=== PATIENT | male | born 1980 | race Caucasian/White ===

== ENCOUNTER 2017-01-08 05:47 | Emergency (ER) | payer OTHER ==
[2017-01-08 06:25] VITALS: BMI 37.9
[2017-01-08] MEDS ORDERED: SODIUM CHLORIDE 1,000 ML IV STA (06:30)
--- NOTE | 2017-01-08 06:37 | PDOC ---
History of Present Illness - General Chief Complaint: Pain Stated Complaint: RIGHT SIDE PAIN Time Seen by Provider: 01/08/17 06:17 History Source: Patient Exam Limitations: No Limitations - History of Present Illness Travel History: No Initial Comments: 01/08/17 06:31 36yo Male patient with no significant past medical history presents to ED c/o RLQ Abdominal Pain. Patient states symptoms began 1 weeks ago, on and off, comes and goes. Patient states yesterday symptoms more pronounced and he became concerned. He denies OTC medications use, fever, n/v/d, rash, CP, back pain dysuria, rectal bleeding, or any other complaints at this time. Associated testicular pain intermittently. PCP- None. Timing/Duration: reports: intermittent Quality: reports: moderate, sharpness Abdominal Pain Onset Location: reports: RLQ Pain Radiation: reports: groin Activities at Onset: reports: no specific activity Treatment Prior to Arrive: worse with: analgesics, antacids, cold pack, heat, laxative, enema, other Aggravating Factors: worse with: None, Defecation, Eating, Emotional upset, Exertion, [place], Movement, Voiding, Change in position Past History - Travel Traveled outside of the country in the last 30 days: No Close contact w/someone who was outside of country & ill: No - Past Medical History Allergies/Adverse Reactions: Allergies Allergy/AdvReac Type Severity Reaction Status Date / Time No Known Allergies Allergy Verified 01/08/17 06:14 Home Medications: Ambulatory Orders NK [No Known Home Medication] 01/08/17 - Suicide/Smoking/Psychosocial Hx Smoking History: Never smoked Have you smoked in the past 12 months: No Information on smoking cessation initiated: No Hx Alcohol Use: No Drug/Substance Use Hx: No Abd/GI Specific PMHX - Complaint Specific PMHX Colitis: No Diverticulitis: No Gall Bladder Disease: No GERD: No Hepatitis: No Irritable Bowel Synd (IBS): No Pancreatitis: No GI Ulcer Disease: No Review of Systems - Review of Systems Able to Perform ROS?: Yes Is the patient limited [place] proficient: No Constitutional: No: Chills, Fever Respiratory: No: Shortness of Breath, Stridor Cardiac (ROS): No: Chest Pain, Syncope, Chest Tightness ABD/GI: Yes: Nausea, Vomiting, Abdominal cramping (RLQ). No: Constipated, Diarrhea, Poor Appetite, Poor Fluid Intake : Yes: Testicular Pain. No: Burning, Dysuria, Flank Pain, Hematuria Musculoskeletal: No: Back Pain All Other Systems: Reviewed and Negative *Physical Exam - Vital Signs Last Vital Signs Temp Pulse Resp BP Pulse Ox 97.9 F 98 H 18 166/96 100 01/08/17 06:11 01/08/17 06:11 01/08/17 06:11 01/08/17 06:11 01/08/17 06:11 - Physical Exam General Appearance: Yes: Nourished, Appropriately Dressed, Obese. No: Apparent Distress, Mild Distress, Moderate Distress, Severe Distress Respiratory/Chest: positive: Lungs Clear, Normal Breath Sounds. negative: Chest Tender, Respiratory Distress, Accessory Muscle Use, Labored Respiration, Rapid RR, Paradoxal Breathing, Rhonchi, Stridor, Wheezing Cardiovascular: positive: Regular Rhythm, Regular Rate Gastrointestinal/Abdominal: positive: Normal Bowel Sounds, Tender (RLQ on deep palpation.), Soft, Tenderness. negative: Distended, Guarding, Rebound Musculoskeletal: positive: Normal Inspection. negative: CVA Tenderness Extremity: positive: Normal Capillary Refill, Normal Inspection, Normal Range of Motion. negative: Pedal Edema, Swelling, Calf Tenderness, Erythema Integumentary: positive: Normal Color, Dry, Warm Neurologic: positive: parking cashier II-XII NML intact, Fully Oriented, Alert, Normal Mood/ Affect, Normal Response, Motor Strength 5/5 ED Treatment Course - RADIOLOGY Radiology Studies Ordered: Category Date Time Status ABDOMEN & PELVIS CT WITH CONTR [CT] Stat CT Scan 01/08/17 06:30 Ordered
--- NOTE | 2017-01-08 06:48 | PDOC ---
*Physical Exam - Vital Signs Last Vital Signs Temp Pulse Resp BP Pulse Ox 97.9 F 98 H 18 166/96 100 01/08/17 06:11 01/08/17 06:11 01/08/17 06:11 01/08/17 06:11 01/08/17 06:11 ED Treatment Course - LABORATORY CBC & Chemistry Diagram: 01/08/17 07:08 01/08/17 07:08 Medical Decision Making - Medical Decision Making 01/08/17 06:47 agree with care from LIZA Bryant *DC/Admit/Observation/Transfer Diagnosis at time of Disposition: Testicular cyst, Adrenal mass - Discharge Dispostion Disposition: HOME Condition at time of disposition: Good - Referrals Referrals: Kody Fontenot MD., MD [Staff Physician] - - Patient Instructions Printed Discharge Instructions: DI for Abdominal Pain-Adult Additional Instructions: Your CAT scan shows an adrenal mass that does need follow-up with your primary care physician. Your ultrasound does show a cyst within your right upper testicle requiring follow-up with urologist. May take Tylenol or Motrin for discomfort. May return to ED if symptoms worsen prior to your follow-up
--- NOTE | 2017-01-08 07:25 | PDOC ---
*Physical Exam - Vital Signs Last Vital Signs Temp Pulse Resp BP Pulse Ox 97.9 F 98 H 18 166/96 100 01/08/17 06:11 01/08/17 06:11 01/08/17 06:11 01/08/17 06:11 01/08/17 06:11 ED Treatment Course - LABORATORY CBC & Chemistry Diagram: 01/08/17 07:08 01/08/17 07:08 Medical Decision Making - Medical Decision Making 01/08/17 07:25 Patient received in sign out from donnell Bryant. Patient awaiting abdominal CT along with testicular ultrasound with complaints of right lower quadrant pain and right inguinal pain. Patient currently resting in bed with IV fluids infusing. 01/08/17 10:15 Ultrasound shows complex cystic structure within the upper pole of the right testicle been 6 rice 5 x 5 mm. There are no additional testicular masses identified. There is otherwise normal arterial flow seen in both testes with no evidence of torsion or epididymal abnormalities present. CT shows a 3 mm calcified granuloma in the left lower lobe and a 2 mm noncalcified nodular opacity in the right middle lobe. Largest measuring up to 5 mm in the right lower lobe. There is a 1.1 x 1.0 cm indeterminate nodule in the right adrenal gland which may be an adenoma. Other lesions cannot entirely be excluded. Please correlate with biochemical markers. There is hepatic steatosis. Gallbladder unremarkable. No spleen abnormalities. There is moderate rectosigmoid stool burden without dilated loops of large or small bowel to suggest obstruction. There is normal-appearing appendix in the right lower quadrant. Prostate gland is not enlarged. The urinary bladder is of normal size. Patient will be given a referral to urologist Dr. Fontenot with copy of his CAT scan and ultrasound report. 01/08/17 10:16 *DC/Admit/Observation/Transfer Diagnosis at time of Disposition: Testicular cyst, Adrenal mass - Discharge Dispostion Disposition: HOME Condition at time of disposition: Good - Referrals Referrals: Kody Fontenot MD., MD [Staff Physician] - - Patient Instructions Printed Discharge Instructions: DI for Abdominal Pain-Adult Additional Instructions: Your CAT scan shows an adrenal mass that does need follow-up with your primary care physician. Your ultrasound does show a cyst within your right upper testicle requiring follow-up with urologist. May take Tylenol or Motrin for discomfort. May return to ED if symptoms worsen prior to your follow-up
[2017-01-08 07:54] LABS: URINE APPEARANCE CLEAR; URINE BILIRUBIN NEGATIVE (NEGATIVE); URINE BLOOD NEGATIVE (NEGATIVE); URINE COLOR LTYELLOW; URINE GLUCOSE (UA) NEGATIVE (NEGATIVE); URINE KETONE NEGATIVE (NEGATIVE); URINE LEUK ESTERASE NEGATIVE (NEGATIVE); URINE NITRITE NEGATIVE (NEGATIVE); URINE PROTEIN NEGATIVE (NEGATIVE); URINE UROBILINOGEN NEGATIVE mg/dL (0.2-1.0)
[2017-01-08 07:59] LABS: BASOPHIL 0.7 % (0-2.0); EOSINOPHIL 2.3 % (0-4.5); MCH 28.5 pg (25.7-33.7); MCHC 33.4 g/dl (32.0-35.9); MEAN CELL VOLUME 85.2 fl (80-96); MEAN PLT VOLUME 11.1 fl (7.5-11.1); NEUTROPHILS 67.8 % (42.8-82.8); PLATELET COUNT 127 K/MM3 (134-434); RDW 13.6 % (11.9-15.9); WHITE BLOOD COUNT 7.2 K/mm3 (4.0-10.0)
[2017-01-08 08:07] LABS: ALBUMIN 3.9 g/dl (3.4-5.0); AMYLASE 40 U/L (25-115); ANION GAP 7 (8-16); CALCIUM 9.6 mg/dL (8.5-10.1); CO2 29 mmol/L (21-32); GLUCOSE,RANDOM 112 mg/dL (74-106); SGPT/ALT 39 U/L (12-78); TOT PROT 7.4 g/dl (6.4-8.2)
[2017-01-08 08:08] LABS: ALK PHOS 72 U/L (45-117)
[2017-01-08 08:15] LABS: SGOT/AST 25 U/L (15-37)
[2017-01-08 10:51] VITALS: BP 188/92; PULSE 80; TEMP 98.6
== END 2017-01-08 11:00 | disposition home or self-care (01) ==
LOC: JER 05:47
PROC: 3E0337Z Introduction of Electrolytic and Water Balance Substance into Peripheral Vein, Percutaneous Approach (ICD-10-PCS; principal; 2017-01-08)
DX: N44.2 Benign cyst of testis (principal); E27.9 Disorder of adrenal gland, unspecified
CPT/HCPCS: 36415; 74177-TC; 76870-TC; 80053; 81003; 82150; 83690; 85025; 99282-25